=== PATIENT | female | born 2000 | race Caucasian/White ===

== ENCOUNTER 2022-12-18 12:18 | Inpatient (IN) | payer OTHER ==
[~2022-12-18] VITALS: Ht 154.9 cm; Wt 54.4 kg
--- NOTE | 2022-12-18 12:20 | NUR ---
PT BIBA/BLS TO BED 5
--- NOTE | 2022-12-18 12:22 | NUR ---
MD GOMEZ AT BEDSIDE FOR EVALUATION
[2022-12-18] MEDS ORDERED: HALOPERIDOL IM 5 MG/ML VIAL ONE (12:28)
[2022-12-18] MEDS ORDERED: LORazepam 2 MG/ML VIAL ONE (12:29)
[2022-12-18] MEDS ORDERED: NACL 0.9% 1,000 ML IV ONE ×3 (12:30→23:45)
[2022-12-18] MEDS ORDERED: LORazepam 2 MG/ML VIAL IM ONE (12:30)
[2022-12-18] MEDS ORDERED: HALOPERIDOL IM 5 MG/ML VIAL IM ONE (12:30)
[2022-12-18 12:38] VITALS: BP 97/51; PULSE 97; RESP 20; TEMP 98.7; O2SAT 96
[2022-12-18 12:55] VITALS: O2SAT 97
--- NOTE | 2022-12-18 12:55 | NUR ---
17YO FEMALE PT [facility] ON 5150 HOLD-DTS. PT PLACED ON HOLD AFTER BEING FOUND RUNNING ONTO TRAFFIC. AT ARRIVAL, PT AWAKE, COMBATIVE AND UNCOMPLIANT W/ ASSESSMENT OR INTAKE . AROUSABLE TO VOICE, TOUCH AND PAIN. ROOM STRIPPED OF POTENTIAL HARMFUL ITEMS. PT IN VIEW, BED AT LOWEST POSITION, BED RAILS UPX2. HX: UNOBTAINABLE ALLERGIES: UNOBTAINABLE 5150 HOLD- DTS PLACED ON 12/18/22 @1200 BY OFFICER LUIS ALFREDO [id number], [facility]
[2022-12-18 14:13] LABS: BASOPHILS % (AUTO) 0.3 % (0.0-2.0); EOSINOPHILS % (AUTO) 0.7 % (0.0-4.0); HEMATOCRIT 31.2 % (36-48); HEMOGLOBIN 10.6 g/dL (12.0-16.0); LYMPHOCYTES # (AUTO) 1.9 K/uL (2.5-16.5); LYMPHOCYTES % (AUTO) 36.6 % (20.5-51.1); MEAN CORPUSCULAR HEMOGLOBIN 32 pg (27-31); MEAN CORPUSCULAR HGB CONC 34 g/dL (33-37); MEAN CORPUSCULAR VOLUME 92.7 fL (80-94); MONOCYTES # (AUTO) 0.6 K/uL (0.8-1.0); NEUTROPHILS # (AUTO) 2.6 K/uL (1.8-7.7); NEUTROPHILS % (AUTO) 50.4 % (42.2-75.2); PLATELET COUNT (AUTO) 265 K/uL (140-450); RED BLOOD CELL COUNT(AUTO) 3.36 MIL/uL (4.20-5.40); RED CELL DISTRIBUTION WIDTH 15.2 % (11.6-13.7); WHITE BLOOD COUNT (AUTO) 5.2 K/uL (4.5-11.0)
[2022-12-18 14:25] VITALS: O2SAT 97
[2022-12-18 14:38] LABS: ACETAMINOPHEN < 0.5 ug/ml (10-30); ALBUMIN 3.5 g/dL (3.4-5.0); ANION GAP 9.6 (8-16); ASPARTATE AMINOTRANSFERASE 44 U/L (15-37); CARBON DIOXIDE 29.8 mmol/L (21-32); CHLORIDE 102 mmol/L (98-107); CREATININE 0.7 mg/dL (0.6-1.3); GFR ARICAN-AMERICAN 140 mL/min (>90); GLUCOSE 93 mg/dL (74-106); POTASSIUM 3.4 mmol/L (3.5-5.1); SALICYLATE < 2.8 mg/dL (2.8-20.0); SODIUM SERUM 138 mmol/L (136-145); TOTAL BILIRUBIN 0.9 mg/dL (0.0-1.0); UREA NITROGEN, BLOOD 18 mg/dL (7-18)
[2022-12-18 15:01] LABS: APPEARANCE,URINE CLEAR (CLEAR); BILIRUBIN,URINE NEGATIVE (NEGATIVE); BLOOD, URINE NEGATIVE (NEGATIVE); COLOR,URINE YELLOW (YELLOW); LEUKOCYTE ESTERASE ,URINE NEGATIVE (NEGATIVE); NITRITE, URINE NEGATIVE (NEGATIVE); UGLUCOSE NEGATIVE (NEGATIVE)
[2022-12-18 15:21] LABS: BARBITURATE, URINE NEGATIVE ng/ml (NEG <=200); BENZODIAZEPINE, URINE POSITIVE ng/mL (NEG <=200); CANNABINOID, URINE POSITIVE ng/mL (NEG <=50); COCAINE, URINE NEGATIVE ng/mL (NEG <=300); OPIATE, URINE NEGATIVE ng/mL (NEG <=2000); PHENCYCLIDINE SCREEN,URINE NEGATIVE ng/mL (NEG <=25)
[2022-12-18 16:53] VITALS: O2SAT 95
[2022-12-18] MEDS ORDERED: POTASSIUM CHLORIDE 10 MEQ TABER PO ONE (17:25)
[2022-12-18] MEDS ORDERED: MAGNESIUM OXIDE 400 MG TAB PO ONE (17:25)
--- NOTE | 2022-12-18 17:35 | NUR ---
pt drowsy and unable to tolerate po/meds at this time. MD MADE AWARE. pt in view and continues at rest w/ eyes closed. respirations even and unlabored. on ekg monitor. bed at lowest position, bed rails upx2.
--- NOTE | 2022-12-18 17:54 | NUR ---
The patient's care was reviewed and supervised by VICKI MARTIN RN.
--- NOTE | 2022-12-18 19:26 | NUR ---
REPORT GIVEN TO YEVGENIY LIZ. TRANSFER OF CARE AT THIS TIME
--- NOTE | 2022-12-18 19:30 | NUR ---
REPORT RECEIVED FROM SHALONDA OWENS. PT LYING IN BED ASLEEP WITH NO S/S PAIN OR DISTRESS AND WITHIN VIEW OF NURSES STATION.
[2022-12-18 20:34] VITALS: O2SAT 96
--- NOTE | 2022-12-18 21:29 | NUR ---
PT LYING IN BED NO S/S PAIN OR DISTRESS. PT SLEEPING BUT WAKES UP OCCASIONALLY. IN VIEW OF NURSES STATION.
[2022-12-18 22:34] VITALS: O2SAT 98
--- NOTE | 2022-12-18 23:05 | NUR ---
PT ASLEEP WITH NO S/S PAIN OR DISTRESS. ON BEDSIDE CURER FOAM RUBBER. VSS. IN VIEW OF NURSES STATION.
--- NOTE | 2022-12-18 23:57 | NUR ---
PT AWAKE EATING SANDWICH AT BEDSIDE
--- NOTE | 2022-12-19 00:34 | NUR ---
PT AWAKE INTERMITTENTLY AND REFUSING TO TAKE PO MEDICATIONS OR GIVE NAME OR DATE OF .
--- NOTE | 2022-12-19 02:40 | NUR ---
PT LYING IN BED SLEEPING WITH NO S/S PAIN OR DISTRESS. ON BEDSIDE BOX ESTIMATOR. IN VIEW OF NURSES STATION.
[2022-12-19 02:47] VITALS: O2SAT 98
[2022-12-19] MEDS ORDERED: MAGNESIUM OXIDE 400 MG TAB ONE (03:10)
--- NOTE | 2022-12-19 03:50 | NUR ---
[place] [employer] OFFICER AT BEDSIDE
--- NOTE | 2022-12-19 04:11 | NUR ---
[place] [employer] REWRITE 5150 HOLD WITH PT NAME.
[2022-12-19] MEDS ORDERED: NACL 0.9% 1,000 ML IV ONE (04:45)
--- NOTE | 2022-12-19 04:49 | NUR ---
PENDING ADMIT ORDERS
[2022-12-19] MEDS ORDERED: DEXT 5% /NACL 0.9% 1,000 ML IV SCH (05:05)
[2022-12-19] MEDS ORDERED: LORazepam 1 MG TAB PO PRN (05:05)
[2022-12-19] MEDS ORDERED: POTASSIUM CHLORIDE 10 MEQ TABER PO PRN (05:05)
[2022-12-19] MEDS ORDERED: MAGNESIUM OXIDE 400 MG TAB PO PRN (05:05)
[2022-12-19] MEDS ORDERED: ACETAMINOPHEN 325 MG TAB PO PRN (05:05)
[2022-12-19] MEDS ORDERED: ONDANSETRON 4 MG/2 ML VIAL IVP PRN (05:05)
--- NOTE | 2022-12-19 06:27 | NUR ---
PT ASLEEP IN BED ON BEDSIDE HIGHWAY ADMINISTRATIVE ENGINEER. BED IN LOWEST POSITION AND SIDE RAILS UP X2. PT IN VIEW OF NURSES STATION.
[2022-12-19 06:29] VITALS: O2SAT 98
--- NOTE | 2022-12-19 07:18 | NUR ---
Pt report given to SHLAONDA JAMISON. Transfer of care at this time.
--- NOTE | 2022-12-19 07:20 | NUR ---
Report recieved from SHALONDA Gallo for transfer of care.
--- NOTE | 2022-12-19 07:28 | NUR ---
Patient was offered snacks.
--- NOTE | 2022-12-19 07:33 | NUR ---
Patient was offered breakfast tray. Patient is sitting up eating.
--- NOTE | 2022-12-19 08:29 | NUR ---
Patient's blood pressure is 83/46. No fluids ordered. Dr. Jordan paged for reporting BP. Awaiting call back. Patient is close to nurses station. Frequent visual checks being made.
--- NOTE | 2022-12-19 08:38 | NUR ---
DR BEGUM MADE AWARE OF LOW BP IN 80S. PT REMAINS ASYMPTOMATIC. STATES OK WITH BP LESS THAN 90.
[2022-12-19] MEDS ORDERED: NACL 0.9% 500 ML IV SCH (08:40)
[2022-12-19] MEDS: NACL 0.9% 1,000 ML IV SCH ×2 (08:44→17:35)
--- NOTE | 2022-12-19 08:49 | NUR ---
PATIENT HAS BEEN SCREENED AND CATEGORIZED LOW NUTRITION RISK. PATIENT WILL BE SEEN WITHIN 7 DAYS OF ADMISSION. 12/26/[address]
[2022-12-19] MEDS: ENOXAPARIN 40 MG/0.4 ML SYR SUBQ SCH (09:00)
[2022-12-19] MEDS: DOCUSATE SODIUM 100 MG GELCAP PO SCH (09:00)
--- NOTE | 2022-12-19 10:04 | NUR ---
Dr. Edwards, admitting doctor, evaluating patient at bedside.
--- NOTE | 2022-12-19 10:11 | NUR ---
Patient requesting to speak to mom. Patient is on the phone speaking with mom.
[2022-12-19] MEDS: DEXT 5% / NACL 0.45% 1,000 ML IV SCH ×2 (10:26→19:39)
--- NOTE | 2022-12-19 10:28 | NUR ---
Patient was offered a snack.
--- NOTE | 2022-12-19 10:34 | NUR ---
Patient ambulated to restroom with steady gait.
--- NOTE | 2022-12-19 12:00 | NUR ---
Patient was offered lunch tray. Patient is sitting up on bed, eating.
--- NOTE | 2022-12-19 12:19 | NUR ---
Patient was offered a coloring book.
--- NOTE | 2022-12-19 12:41 | NUR ---
DC [age] YRS OLD FEMALE PATIENT WAS ADMITTED FROM HOME WITH A DX OF DRUG OVERDOSE, DEHYDRATION AND 5150 HOLD. PATIENT HAS NO MEDICAL HX. UDS + FOR METHAMPHETAMINE, BENZO AND THC. ADMINISTERED IVF. CONSULTED WITH TELE PSYCH. DC PLAN PER PSYCH EVAL. CM TO FOLLOW. Addendum: 12/20/22 at 1432 by Jasmine Ayers RN DC PLANNING: PER PSYCH CONSULT TO TRANSFER TO INPT PSYCH FACILITY. [facility] RN SPINE TO FOLLOW. Addendum: 12/21/22 at 1422 by MARIA ESTHER GALVAN CM RECEIVED ORDER FOR PATIENT TO GET AN OUTPATIENT PSYCH FOLLOW UP APPOINTMENT. CALLED [facility] LOCATED AT [address] [place] [id number]. PATIENT HAS A FOLLOW UP APPOINTMENT 12/27/2022 AT 0800. CALLED MOTHER CHARLES WHO IS AWARE ALSO WENT TO BEDSIDE TO INFORM PATIENT AND NURSE ORTIZA OF THE ABOVE INFORMATION AND AND TO LEAVE APPOINTMENT SLIP AND WALK IN PSYCH FLYER IN DISCHARGE PAPERWORK
--- NOTE | 2022-12-19 13:00 | NUR ---
DR BEGUM STATES PT IS MEDICALLY CLEARED.
--- NOTE | 2022-12-19 13:47 | NUR ---
Patient ambulate to restroom.
--- NOTE | 2022-12-19 14:58 | NUR ---
Dr. Huang, psychiatrist, evaluating patient via Telepsych.
--- NOTE | 2022-12-19 16:50 | NUR ---
Patient ambulated to the restroom with steady gait.
[2022-12-19] MEDS ORDERED: OLANZapine 10 MG VIAL IM ONE (17:08)
[2022-12-19] MEDS ORDERED: WATER STERILE 10 ML MC ONE (17:09)
--- NOTE | 2022-12-19 18:04 | NUR ---
Patient was given dinner tray.
--- NOTE | 2022-12-19 18:48 | NUR ---
Patient got aggitated with no cause. Patient pulled out IV and started walking away. Patient was redirected back to bed and pressure applied to IV site.
[2022-12-19] MEDS ORDERED: diphenhydrAMINE 50 MG/ML VIAL IM ONE (18:50)
[2022-12-19] MEDS ORDERED: LORazepam 2 MG/ML VIAL IM ONE (18:50)
[2022-12-19] MEDS ORDERED: HALOPERIDOL IM 5 MG/ML VIAL IM ONE (18:50)
--- NOTE | 2022-12-19 19:20 | NUR ---
Report given to SHALONDA Deutsch for transfer of care.
[2022-12-19 19:45] VITALS: O2SAT 100
--- NOTE | 2022-12-19 20:38 | NUR ---
pt ambulatory to restroom
--- NOTE | 2022-12-19 23:49 | NUR ---
Patient will be admitted to care of Dr. Jordan. Admited to Tele. Will go to [id number]. Belongings list completed. Report to Cathleen KIM.
[2022-12-19 23:54] VITALS: PULSE 51; RESP 18; O2SAT 98
--- NOTE | 2022-12-19 23:54 | NUR ---
PT WAS ADMITTED TO [facility] DEPARTMENT FROM ER VIA [facility] WITH DIAGNOSIS OF DRUG OVERDOSE AND DEHYDRATION. PT IS 51/20, AOX2-3 AND ABLE TO VERBALIZE NEEDS. PT HAS A SITTER. PT IS ON ROOM AIR AND ON CARDIAC DIET. PT HAS IV ON LEFT FORARM GAUGE 20 RUNNING WITH D5 1/2 NS AT 802ML/HR. PT SKIN IS INTACT. PT WAS ORIENTED TO ROOM AND HOSPITAL. ALL SAFETY MEASURES IMPLEMENTED, BED WHEELS ON LOCK AND BED IN LOW POSITION.
--- NOTE | 2022-12-20 00:57 | NUR ---
NOTIFIED DR. FLORES THAT PT BP IS 74/38. DR. FLORES ORDER 500ML OF NS, BOLUS. ORDER WAS MADE AND CARRIED OUT.
[2022-12-20] MEDS ORDERED: NACL 0.9% 500 ML IV ONE (01:00)
--- NOTE | 2022-12-20 02:00 | NUR ---
PT IS ON SLEEP. CHEST RISE AND FALL SYMMETRICALLY NOTED. RESPIRATION IS EVEN AN UNLABORED. SITTER WAS ON BEDSIDE. ALL SAFETY MEASURES IMPLEMENTED, BED WHEELS ON LOCK AND BED IN LOW POSITION.
[2022-12-20 04:00] VITALS: BP 96/53; PULSE 66; PULSE 67; RESP 18; TEMP 98; O2SAT 100
--- NOTE | 2022-12-20 04:00 | NUR ---
CHECKED THE PT, STILL ON SLEEP. CHEST RISE AND FALL SYMMETRICALLY NOTED. RESPIRATION IS EVEN AND UNLABORED. ALL SAFETY MEASURES IMPLEMENTED. BED IN LOW POSITION, BED WHEELS ON LOCK AND CALL LIGHT WITHIN REACH.
[2022-12-20] MEDS: DEXT 5% / NACL 0.45% 1,000 ML IV SCH ×2 (05:50→14:06)
--- NOTE | 2022-12-20 07:05 | NUR ---
ASSUMED CONTINUITY OF CARE. INITIAL ASSESSMENT DONE. CALM QUIET AND NO SUICIDAL IDEATION OBSERVED. KEEP ENVIRONMENT SAFE. CLOSELY MONITORED BY A SITTER 1:1 FOR SUICIDAL PREVENTION.
--- NOTE | 2022-12-20 07:05 | NUR ---
ASSUMED CONTINUITY OF CARE. INITIAL ASSESSMENT DONE. CALM, QUIET AND NO SUICIDAL IDEATION OBSERVED. KEEP ENVIRONMENT SAFE. CLOSELY MONITORED BY ROMMEL 1 Addendum: 12/20/22 at 1251 by Gokul Forman LVN LVN INCOMPLETE ENTRY.
[2022-12-20 07:15] LABS: ALBUMIN 2.4 g/dL (3.4-5.0); ANION GAP 10.2 (8-16); CARBON DIOXIDE 24.7 mmol/L (21-32); CREATININE 0.6 mg/dL (0.6-1.3); POTASSIUM 3.9 mmol/L (3.5-5.1); TOTAL BILIRUBIN 0.3 mg/dL (0.0-1.0)
--- NOTE | 2022-12-20 07:17 | NUR ---
PT IS STABLE. ENDORSED PT TO MORNING SHIFT NURSE FOR CONTINUITY OF CARE.
--- NOTE | 2022-12-20 07:56 | NUR ---
Patient's Plan of Care was discussed and reviewed with SPOUTING INSTALLER: MAGALI
[2022-12-20 08:00] VITALS: BP 95/59; PULSE 65; PULSE 70; RESP 18; TEMP 98.2; O2SAT 100; O2SAT 98
[2022-12-20] MEDS: DOCUSATE SODIUM 100 MG GELCAP PO SCH (08:47)
[2022-12-20] MEDS: ENOXAPARIN 40 MG/0.4 ML SYR SUBQ SCH (08:47)
--- NOTE | 2022-12-20 08:47 | NUR ---
INFORMED DR. RAE WHO WAS AT THE [facility] NURSE STATION AT THIS TIME ABOUT PT. BP AT 0800 96/52 AND REFUSAL OF COLACE 100 MG PO AND [id number] MG SUB-Q. NO ORDER RECEIVED. INOF Addendum: 12/20/22 at 1302 by Gokul Forman LVN LVN DISREGARD -INOFiona WORD.
[2022-12-20 12:00] VITALS: BP 98/56; PULSE 68; RESP 18; TEMP 97.3; O2SAT 99
--- NOTE | 2022-12-20 15:28 | NUR ---
Theatre Program Director UNIT SECY made a follow up call to [facility], . They have received UNIT SECY's clinicals on this pt. including the H&P, 24 hour , order for placement when bed becomes available, face sheet and [id number]. Call center reported there are currently no beds at this time. UNIT SECY will leave a note for [employer]a Automation Architect on Jacque. to follow up. Addendum: 12/20/22 at 1713 by Jennifer Jones CM Theatre Program Director After a couple of attempts, UNIT SECY was able to met with pt. bedside. Pt. maintained eye contact, was agreeable to this interview , but was limited in her conversation. Pt. knew why she was at [facility]. Pt. admitted to taking all drugs listed in the toxicology. Pt. stated she gets them from her homies. Pt stated she is an only child. She dropped out of school high school, is 22, does not work or go to school. Pt. stated she does not want to do anything. Pts baseline is unknown. UNIT SECY does not know if pts. cognitive level is due to the drugs or could be an additional issues with mental disabilities. When asked, pt could not recall the name of the psych facility she was just released from. Pt. felt it would be ok if she went back. Pt. did not elaborate on her answers, said yes/no and i don't know. UNIT SECY provided pt with numerous resources.
[2022-12-20 16:00] VITALS: BP 100/65; PULSE 68; RESP 18; TEMP 97.7; O2SAT 99
--- NOTE | 2022-12-20 19:04 | NUR ---
REPORT GIVEN TO DOMINGO CHAPARRO. IVF INFUSING WELL. IN STABLE CONDITION.
--- NOTE | 2022-12-20 19:05 | NUR ---
RECEIVED ENDORSEMENT FROM MAGALI LIZ FOR CONTINUITY OF CARE. PATIENT IS AWAKE AND STABLE. A&OX4. DENIES PAIN AT THIS TIME. ON ROOM AIR WITH NO APPARENT S/SX OF ACUTE DISTRESS. RESPIRATIONS EVEN AND UNLABORED WITH NO APPARENT S/SX OF ACUTE DISTRESS. IV SITE TO THE LAC 20G PATENT/INTACT WITH IVF INFUSING. SKIN IS INTACT. PATIENT IS AMBULATORY AND CONTINENT. 5150 HOLD CURRENTLY ACTIVE. PLAN OF CARE UPDATED. ALL SAFETY MEASURES IN PLACE. BED IN LOW/LOCKED POSITION. SIDE RAILS X2 UP. 1:1 SITTER PRESENT. WILL CONTINUE TO MONITOR.
[2022-12-20 20:00] VITALS: PULSE 67; RESP 16; O2SAT 99
--- NOTE | 2022-12-21 01:10 | NUR ---
ROUNDED ON PATIENT. PATIENT IS STABLE AND ASLEEP NO FACIAL GRIMACING. FLACC=0. CHEST IS RISING AND FALLING SYMMETRICALLY. RESPIRATIONS EVEN AND UNLABORED WITH NO APPARENT S/SX OF ACUTE DISTRESS. ALL SAFETY MEASURES IN PLACE. BED IN LOW/LOCKED POSITION. SIDE RAILS X2 UP. 1:1 SITTER PRESENT. WILL CONTINUE TO MONITOR.
[2022-12-21] MEDS: DEXT 5% / NACL 0.45% 1,000 ML IV SCH (02:59)
--- NOTE | 2022-12-21 03:10 | NUR ---
CHANGED PATIENT'S IVF. TOLERATED WELL. PATIENT IS STABLE AND ASLEEP NO FACIAL GRIMACING. FLACC=0. CHEST IS RISING AND FALLING SYMMETRICALLY. RESPIRATIONS EVEN AND UNLABORED WITH NO APPARENT S/SX OF ACUTE DISTRESS. ALL SAFETY MEASURES IN PLACE. BED IN LOW/LOCKED POSITION. SIDE RAILS X2 UP. 1:1 SITTER PRESENT. WILL CONTINUE TO MONITOR.
[2022-12-21 04:00] VITALS: BP 91/56; PULSE 61; RESP 16; TEMP 97.3; O2SAT 100
--- NOTE | 2022-12-21 05:10 | NUR ---
CHECKED PATIENT. PATIENT IS STABLE AND ASLEEP NO FACIAL GRIMACING. FLACC=0. CHEST IS RISING AND FALLING SYMMETRICALLY. RESPIRATIONS EVEN AND UNLABORED WITH NO APPARENT S/SX OF ACUTE DISTRESS. ALL NEEDS MET AT THIS TIME. ALL SAFETY MEASURES IN PLACE. BED IN LOW/LOCKED POSITION. SIDE RAILS X2 UP. 1:1 SITTER PRESENT. WILL CONTINUE TO MONITOR.
[2022-12-21 06:48] LABS: ALBUMIN 2.6 g/dL (3.4-5.0); CARBON DIOXIDE 28.7 mmol/L (21-32); CREATININE 0.6 mg/dL (0.6-1.3); POTASSIUM 3.7 mmol/L (3.5-5.1); TOTAL BILIRUBIN 0.3 mg/dL (0.0-1.0)
--- NOTE | 2022-12-21 07:00 | NUR ---
RECEIVED PT FROM DRAWING OPERATOR FOR CONTINUITY OF CARE. ALERT, AWAKE AND RESPONSIVE. RESP. EVEN AND UNLABORED. ON ROOM AIR. IVF INFUSING WELL. ON 1:1 SITTER FOR SUICIDAL IDEATION. REMAINS STABLE.
--- NOTE | 2022-12-21 07:03 | NUR ---
ENDORSED PATIENT TO ANANDA LIZ FOR CONTINUITY OF CARE. PATIENT IS STABLE.
[2022-12-21 08:00] VITALS: PULSE 55; RESP 18; O2SAT 98
--- NOTE | 2022-12-21 08:00 | NUR ---
Patient's Plan of Care was discussed and reviewed with BEAUTY SALES CONSULTANT: ANANDA STEWART
[2022-12-21] MEDS: DOCUSATE SODIUM 100 MG GELCAP PO SCH (08:22)
--- NOTE | 2022-12-21 08:22 | NUR ---
SCHEDULED MEDICATIONS GIVEN. TOLERATED WELL.
[2022-12-21] MEDS: ENOXAPARIN 40 MG/0.4 ML SYR SUBQ SCH (08:23)
--- NOTE | 2022-12-21 08:35 | NUR ---
SEEN BY DR. RAE.
--- NOTE | 2022-12-21 10:20 | NUR ---
Riding Double: Follow up call made to Florence at the [facility]. The clinical packet has been sent out to the followin. [facility] 2. [facility] 3. [facility] 4. [facility] 5. [facility] Per Florence, she will follow up with the listed placements, but will also be sending to [facility]. The patient continues to have a 5150 hold that will today at 12n.
--- NOTE | 2022-12-21 12:30 | NUR ---
Operating Room Coordinator: Telephone call made to JULIO THOMAS, Beatriz, about the need for a telepsyche since the patient's 5150 bed hold has . Follow up call made to JULIO Braxton from [facility]. I advised her of the patient and her current circumstances. She suggested I get an order for out patient psychiatry follow up. She also advised the patient and family follow up at the [facility] in [place] for further behavior management care. I spoke with JULIO Anguiano who advised that after the telepsyche an order can be placed regarding outpatient follow up. JULIO Braxton from [facility]: [phone] [facility]: [phone]; [address] [place] [address]; [facility] [address]
--- NOTE | 2022-12-21 13:00 | NUR ---
PT WAS SEEN BY TELEPSYCH JAELYN PERRY FOR REEVALUATION. WITH RECOMMENDATIONS, DC TO HOME WITH FAMILY. RAJEEV NURSE , SW, CM MADE AWARE.
--- NOTE | 2022-12-21 15:15 | NUR ---
CALLED CHARLES BHAGAT (MOTHER). INFORMED PT DISCHARGE ORDER. STATED SHE WILL PICK PER UP AT 1700. CHARGE NURSE MADE AWARE.
--- NOTE | 2022-12-21 16:55 | NUR ---
PT LEFT. DISCHARGE TO HOME. TRANSPORTED BY PRIVATE VEHICLE, ACCOMPANIED BY HER MOTHER. ALERT AND ORIENTED X 4. RESP. EVEN AND UNLABORED. ID BAND AND IV REMOVED. DISCHARGE PAPERWORK DISCUSS AND SIGNED BY PT. SKIN INTACT. REMAINS STABLE.
== END 2022-12-21 16:55 | disposition home or self-care (01) | DRG 351 ==
LOC: EDBD 12:18 → MED 12:18 → MTU 12-19 05:05 → UNDOADMOB 12-19 05:05 → MTU 12-19 21:49 → OBSVTOIN 12-20 05:05 → INTOOBSV 12-21 12:58
PROVIDERS: ADMIT Student in an Organized Health Care Education/Training Program; ATTEND Student in an Organized Health Care Education/Training Program
DX: M62.82 Rhabdomyolysis (principal); F29 Unspecified psychosis not due to a substance or known physiological condition; E87.6 Hypokalemia; F23 Brief psychotic disorder; F15.10 Other stimulant abuse, uncomplicated; F12.10 Cannabis abuse, uncomplicated; F13.10 Sedative, hypnotic or anxiolytic abuse, uncomplicated; Z20.822 Contact with and (suspected) exposure to COVID-19
CPT/HCPCS: 36415; 80053; 80305; 81003; 82550; 82553; 85025; 87081; G0480; G0482; J1200; J1630; J1650; J2060; J3490